=== PATIENT | male | born 1940 | race Caucasian/White ===

== ENCOUNTER → 2016-07-08 | Outpatient (CLI) | payer MEDICARE ==
[~2016-07-08] MED LIST: AMLO5TAB2 PO; BUDE10.2 INH; TIOT18CA INH; WARF5TAB7 PO
== END | disposition home or self-care (01) ==
LOC: ROC 13:08
PROVIDERS: ATTEND Radiology Radiation Oncology
DX: C34.12 Malignant neoplasm of upper lobe, left bronchus or lung (principal); J44.9 Chronic obstructive pulmonary disease, unspecified; Z87.891 Personal history of nicotine dependence
CPT/HCPCS: G0463

== ENCOUNTER → 2017-02-04 | Outpatient (CLI) | payer MEDICARE ==
[~2017-02-04] MED LIST changes: +CAPE500T24 PO; +CEFT2FRO2 IV; +FAMO20TA7 PO; +IPRA0.2S35 NPPB; +OMEP-110 PO; +ONDA4TAB7 PO; +POTA20PA25 PO; +RIVA15TA PO
== END | disposition home or self-care (01) ==
LOC: ROC 10:15
PROVIDERS: ATTEND Radiology Radiation Oncology
DX: C34.90 Malignant neoplasm of unspecified part of unspecified bronchus or lung (principal)
CPT/HCPCS: G0463